=== PATIENT | male | born 1990 | race Caucasian/White ===

== ENCOUNTER 2017-01-04 20:22 | Emergency (ER) | payer SELFPAY ==
[~2017-01-04] VITALS: Ht 185.4 cm; Wt 79.0 kg
[~2017-01-04 20:22] MED LIST: BACT800T5 PO
[2017-01-04 20:29] VITALS: BP 140/83; PULSE 110; RESP 20; TEMP 98.6
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
== END 2017-01-04 20:38 | disposition left against medical advice (07) ==
LOC: PHEFT 20:22
DX: T17.298A Other foreign object in pharynx causing other injury, initial encounter (principal); Z72.0 Tobacco use; Z86.59 Personal history of other mental and behavioral disorders; Z87.19 Personal history of other diseases of the digestive system; Z87.39 Personal history of other diseases of the musculoskeletal system and connective tissue; Z53.29 Procedure and treatment not carried out because of patient's decision for other reasons; X58.XXXA Exposure to other specified factors, initial encounter
CPT/HCPCS: 99281